=== PATIENT | female | born 1980 | race Caucasian/White ===

== ENCOUNTER 2020-03-21 11:15 | Emergency (ER) | payer MEDICAID, SELFPAY ==
--- NOTE | 2020-03-21 | XR_ITS ---
EXAMINATION: XR LUMBOSACRAL SPINE CLINICAL INFORMATION: Lower back pain. COMPARISON: None TECHNIQUE: Three views of the lumbosacral spine. FINDINGS: The vertebral bodies and posterior elements are normal. The disc spaces are preserved and the vertebral alignment is normal. The paraspinal soft tissues are normal. XR/XR lumbar spine 2-3V IMPRESSION: Unremarkable lumbar spine examination.
[2020-03-21 11:30] VITALS: BP 107/62; PULSE 82; RESP 20; TEMP 36.8; O2SAT 100; BMI 26.8
--- NOTE | 2020-03-21 11:50 | PC.NURSE ---
transported via [facility] to ed 18h bed, 2 assist onto stretcher, transported to xray dept
--- NOTE | 2020-03-21 12:40 | ED.BACK ---
HPI - Back Pain/Injury General Chief Complaint: Back Pain/Injury Stated Complaint: FELT POP LOW BACK W/PAIN Time Seen by Provider: 03/21/20 12:03 Source: patient and EMS Mode of arrival: EMS Limitations: no limitations History of Present Illness HPI Narrative: 39 y/o female presenting with acute onset of low back pain after she was down in the ground cleaning under her kitchen sink. She states while bending down felt her entire lower back tighten up and it caused debiliating pain. She was unable to move. She called 911. She denies weakness, numbness, incontinence. MD elicited complaint: back pain Pertinent past history: prior back pain Onset (ago): hour(s) (2) Timing: constant Severity: severe Similar Symptoms Previously: No Quality: aching and spasming Location: right lower back and left lower back Radiation: none Exacerbating factors: movement, deep breaths and coughing/sneezing Relieving factors: immobilization Context: turning/twisting and bending Associated symptoms: denies other symptoms Work related injury: No Related Data Previous Rx's Medication Instructions Recorded cyclobenzaprine 5 mg PO TID PRN #14 tab 03/21/20 ibuprofen 600 mg PO Q8H PRN #20 tab 03/21/20 lidocaine [Lidoderm] 1 patch TOPICAL DAILY #15 ea 03/21/20 oxycodone 5 mg PO Q6H PRN #8 tab 03/21/20 Allergies Allergy/AdvReac Type Severity Reaction Status Date / Time morphine Allergy Unknown Verified 01/18/16 00:00 No Known Allergies Allergy Unverified 12/09/19 16:23 [No Known Allergies*] Review of Systems Review of Systems: Constitutional: No Fever, No Chills Cardiovascular: No Chest Pain, No SOB Respiratory: No Cough, No Sputum Gastrointestinal: No Nausea, No Vomiting Genitourinary: No Dysuria, No Urinary Frequency, No Hematuria, No incontinece Musculoskeletal: + joint pain, + Myalgias Skin: No Skin Lesions, No rash Neuro: No Weakness, No Numbness, No Dizziness Heme/Lymph: No Bruising PMFSH Past Medical History Attestation statement: The following information was validated with the patient. Medical History (Updated 03/22/20 @ 18:21 by VINCENT Baltazar) No known health problems Social History Social History Advance Directives: No Advance Directives Information Provided: No Physical Exam Vital Signs: Vital Signs: Last Vital Signs Temp 97.9 F 03/21/20 14:37 Pulse 77 03/21/20 14:37 Resp 16 03/21/20 14:37 BP 123/71 03/21/20 14:37 Pulse Ox 97 03/21/20 14:37 Body Mass Index 26.8 Appearance: Alert. Oriented X3. No acute distress. HEENT: normal inspection CVS: Normal heart rate and rhythm. Pulses normal. Respiratory: No respiratory distress. Skin: Skin warm and dry. Normal skin color. Normal skin turgor. No rashes. Back: bilateral mid-low lumbar soft tissue tenderness bilaterally, no spinal tenderness. Extremities: atraumatic Neuro: Oriented X 3. No motor deficit. No sensory deficit. Slow to arise, steady but slow gait due to pain Course Course Course Narrative: 39 yo female presenting with acute onset low back pain - consistent with muscle pain and spasm. XR is negative. No focal weakness on exam. No red flag symptoms of low back pain. No hx IDVA. Given muscle relaxer and dose of Toradol, Oxycodone with significant improvement in pain. Stable for d/c with the above medications. Discharge Plan Discharge Clinical Impression: Strain of lumbar region Patient Disposition: Home, Self-Care Instructions: Low Back Strain (ED), Lower Back Exercises (ED) Additional Instructions: Your x-rays today are negative. It is likely that your pain is muscular in nature. Take the prescribed medications as needed for pain. Limit bending, lifting >5lbs and twisting motions. Follow up with your doctor tomorrow. Use ice several times per day for the next 48-72 hours and then use heat. If your pain worsens or if you develop weakness, numbness, loss of function or incontinence come back to the ER for further evaluation. Prescriptions: New lidocaine [Lidoderm] 5 % adhesive patch,medicated 1 patch topical DAILY Qty: 15 RF: 0 ibuprofen 600 mg tablet 600 mg PO Q8H PRN (Reason: pain) Qty: 20 RF: 0 cyclobenzaprine 5 mg tablet 5 mg PO TID PRN (Reason: muscle spasm) Qty: 14 RF: 0 oxycodone 5 mg tablet 5 mg PO Q6H PRN (Reason: pain) Qty: 8 RF: 0 Interventions: ED Discharge Assessment Last Done: 03/21/20 15:21 Discharge Date/Time: 03/21/20 15:22
[2020-03-21] MEDS: Ketorolac Tromethamine 30 MG/ML VIAL IM (12:41)
[2020-03-21] MEDS: Cyclobenzaprine HCl 5 MG TABLET PO (13:19)
[2020-03-21] MEDS: Lidocaine 4 % Patch ADH..PATCH 1 PATCH TRANSDERMA (13:19)
[2020-03-21] MEDS: oxyCODONE HCl Immed Release 5 MG TABLET PO (13:20)
--- NOTE | 2020-03-21 14:33 | PC.NURSE ---
PT NOW REPORTS PAIN 5/10, IMPROVEMENT IN MOVEMENT
[2020-03-21 14:37] VITALS: BP 123/71; PULSE 77; RESP 16; TEMP 36.6; O2SAT 97
== END 2020-03-21 15:22 | disposition home or self-care (01) ==
PROVIDERS: Emergency Provider Emergency Medicine Emergency Medical Services; PCP Internal Medicine
DX: S39.012A Strain of muscle, fascia and tendon of lower back, initial encounter (principal); W01.0XXA Fall on same level from slipping, tripping and stumbling without subsequent striking against object, initial encounter; Y93.9 Activity, unspecified; Y92.9 Unspecified place or not applicable; Y99.9 Unspecified external cause status; Z79.899 Other long term (current) drug therapy
CPT/HCPCS: 72100; 96372; 99284; J1885

== ENCOUNTER 2020-12-27 15:36 | Outpatient (REF) | payer MEDICAID, SELFPAY | END 2020-12-27 15:37 | disposition home or self-care (01) | LOC: HO.LAB 15:36 | PROVIDERS: PCP Internal Medicine; Visit Provider Internal Medicine | DX: Z20.822 Contact with and (suspected) exposure to COVID-19 (principal) | CPT/HCPCS: C9803; U0003; U0005 ==

== ENCOUNTER 2021-09-26 06:31 | Emergency (ER) | payer MEDICAID, SELFPAY ==
--- NOTE | ~2021-09-26 | US_ITS ---
EXAMINATION: US PELVIS CLINICAL INFORMATION: Lower abdominal pain with history of ovarian cyst. COMPARISON: CT scan of the abdomen and pelvis as well as pelvic ultrasound dated 11/09/2019. TECHNIQUE: Ultrasound of the pelvis is performed using both transabdominal and transvaginal transducers along with Doppler. Transvaginal imaging is performed due to inadequate visualization transabdominally. FINDINGS: Uterus: Retroverted/retroflexed measuring 7.4 x 4.1 x 5.8 cm. The endometrial stripe measures up to 0.7 cm at the level the fundus without focal abnormality. The cervix is closed without abnormality. No free fluid in the cul-de-sac. Right ovary: 3.8 x 3.0 x 3.2 cm with a volume of 19.1 mL. A heterogeneous cyst measures 2.2 x 1.5 cm. An anechoic cyst measures 1.9 x 1.7 cm. Doppler showed no abnormal vascular flow. Left ovary: 3.0 x 1.9 x 2.5 cm with a volume of 7.5 cm. An anechoic cyst measures 1.6 x 1.1 cm. Doppler showed no abnormal vascular flow. US/US pelvic and transvaginal IMPRESSION: Retroverted/retroflexed uterus without overt abnormality. Bilateral renal cysts demonstrate overall benign features and are likely physiologic, within normal limits for a patient of this age.
[2021-09-26 06:39] VITALS: BP 123/79; PULSE 80; RESP 18; TEMP 37.2; O2SAT 100; BMI 28.9
[2021-09-26 07:15] LABS: Hematocrit 39.2 % (37.0-47.0); Hemoglobin 13.3 g/dl (12.0-16.0); Mean Corpuscular HGB Conc 33.9 g/dl (31.0-35.0); Mean Corpuscular Hemoglobin 30.2 pg (27.0-33.0); Mean Corpuscular Volume 89.1 fL (80.0-98.0); Mean Platelet Volume 9.5 fL (9.4-12.3); Platelet Count 233 X10*3/uL (160-400); Red Cell Distribution Width 12.2 % (11.0-16.0); White Blood Count 7.2 X10*3/uL (4.8-10.8)
[2021-09-26 07:31] LABS: Alanine Aminotransferase 8 U/L (0-31); Albumin Level 3.9 g/dL (3.5-5.0); Alkaline Phosphatase 102 U/L (39-117); Anion Gap 9 (12-20); Aspartate Amino Transferase 13 U/L (5-31); Bilirubin Total 0.4 mg/dL (0.0-1.0); Blood Urea Nitrogen 8 mg/dL (9-16); Calcium 8.7 mg/dL (8.4-10.2); Carbon Dioxide 29 mmol/L (22-29); Chloride 105 mmol/L (96-108); Creatinine Clr Calc Pharmacy 99.3; Estimated Glomerular Filt Rate > 60; Glucose Random 112 mg/dL (60-115); Lipase 24 U/L (8-78); Potassium 4.3 mmol/L (3.3-5.1); Sodium 139 mmol/L (135-145); Total Protein 6.9 g/dL (6.5-8.0)
--- NOTE | 2021-09-26 07:42 | ED_ITS ---
HPI - Abdominal Pain General Chief Complaint: Abdominal Pain Stated Complaint: lower abd pain Time Seen by Provider: 09/26/21 07:42 Source: patient Mode of arrival: ambulatory Limitations: no limitations History of Present Illness HPI narrative: Patient with history of ovarian cyst been complaining of lower abdominal pain for last 3 days especially when she bending or walking no fever no chills no nausea no vomiting no diarrhea no urinary symptoms no vaginal discharge no back pain Related Data Previous Rx's Medication Instructions Recorded cyclobenzaprine 5 mg tablet 5 mg PO TID PRN muscle spasm #14 03/21/20 tabs ibuprofen 600 mg tablet 600 mg PO Q8H PRN pain #20 tabs 03/21/20 lidocaine 5 % topical patch 1 patch topical DAILY #15 ea 03/21/20 (Lidoderm) oxycodone 5 mg tablet 5 mg PO Q6H PRN pain #8 tabs 03/21/20 ibuprofen 600 mg tablet 600 mg PO Q6H PRN pain #20 tabs 09/26/21 Allergies Allergy/AdvReac Type Severity Reaction Status Date / Time morphine Allergy Unknown Verified 01/18/16 00:00 No Known Allergies Allergy Unverified 12/09/19 16:23 [No Known Allergies*] Review of Systems Review of Systems Yes all other systems are reviewed and are negative [facility] Past Medical History Medical History No known health problems Social History Social History Advance Directives: No Advance Directives Information Provided: Yes Patient : No Physical Exam ED Vital Signs: Vital Signs - 24 hr 09/26/21 06:39 09/26/21 07:54 Temperature 98.9 F 97.9 F Pulse Rate 80 79 Respiratory Rate 18 16 Blood Pressure 123/79 92/72 Pulse Oximetry 100 100 Oxygen Delivery Method Room Air Room Air BMI result Body Mass Index 28.9 Appearance: Alert. Oriented X3. No acute distress. ENT: Pharynx normal. Oral Mucosa moist Neck: Normal inspection. Neck supple. CVS: Normal heart rate and rhythm. Pulses normal. Respiratory: No respiratory distress. Equal air entry bilateral, no wheezing/rales/rhonchi Abdomen: Soft , deep tenderness suprapubic area no rebound tenderness or guarding Bowel sounds are present, no mass palpable, no CVA tenderness Skin: Skin warm and dry. Normal skin color. Normal skin turgor. Extremities: No lower extremity edema. No calf tenderness Neuro: Oriented X 3 MDM - Abdominal Pain Lab Data Attestation: I reviewed the patient's lab results. Result diagrams: 09/26/21 07:06 09/26/21 07:06 Labs: Lab Results 09/26/21 09/26/21 09/26/21 Range/Units 07:06 07:06 07:54 WBC 7.2 (4.8-10.8) X10*3/uL RBC 4.40 (4.20-5.50) X10*6/uL Hgb 13.3 (12.0-16.0) g/dl Hct 39.2 (37.0-47.0) % MCV 89.1 (80.0-98.0) fL MCH 30.2 (27.0-33.0) pg MCHC 33.9 (31.0-35.0) g/dl RDW 12.2 (11.0-16.0) % Plt Count 233 (160-400) X10*3/uL MPV 9.5 (9.4-12.3) fL Absolute Nucleated RBC 0.000 (0.0-0.012) X10*3/uL Nucleated RBC % (auto) 0.0 (0.0-0.2) /100WBC Sodium 139 (135-145) mmol/L Potassium 4.3 (3.3-5.1) mmol/L Chloride 105 (96-108) mmol/L Carbon Dioxide 29 (22-29) mmol/L Anion Gap 9 L (12-20) BUN 8 L (9-16) mg/dL Creatinine 0.65 (0.5-1.4) mg/dL Estim Creat Clear Calc 99.3 Estimated GFR > 60 Random Glucose 112 (60-115) mg/dL Calcium 8.7 (8.4-10.2) mg/dL Total Bilirubin 0.4 (0.0-1.0) mg/dL AST 13 (5-31) U/L ALT 8 (0-31) U/L Alkaline Phosphatase 102 (39-117) U/L Total Protein 6.9 (6.5-8.0) g/dL Albumin 3.9 (3.5-5.0) g/dL Lipase 24 (8-78) U/L Urine Color Urine Appearance Urine pH (5.0-8.0) Ur Specific [place] (1.005-1.025) Urine Protein (NEG-TRACE) MG/DL Urine Glucose (UA) (NEG) MG/DL Urine Ketones (NEG) MG/DL Urine Blood (NEG) Urine Nitrite (NEG) Ur Leukocyte Esterase (NEG) Urine Test NEGATIVE (NEGATIVE) 09/26/21 Range/Units 07:54 WBC (4.8-10.8) X10*3/uL RBC (4.20-5.50) X10*6/uL Hgb (12.0-16.0) g/dl Hct (37.0-47.0) % MCV (80.0-98.0) fL MCH (27.0-33.0) pg MCHC (31.0-35.0) g/dl RDW (11.0-16.0) % Plt Count (160-400) X10*3/uL MPV (9.4-12.3) fL Absolute Nucleated RBC (0.0-0.012) X10*3/uL Nucleated RBC % (auto) (0.0-0.2) /100WBC Sodium (135-145) mmol/L Potassium (3.3-5.1) mmol/L Chloride (96-108) mmol/L Carbon Dioxide (22-29) mmol/L Anion Gap (12-20) BUN (9-16) mg/dL Creatinine (0.5-1.4) mg/dL Estim Creat Clear Calc Estimated GFR Random Glucose (60-115) mg/dL Calcium (8.4-10.2) mg/dL Total Bilirubin (0.0-1.0) mg/dL AST (5-31) U/L ALT (0-31) U/L Alkaline Phosphatase (39-117) U/L Total Protein (6.5-8.0) g/dL Albumin (3.5-5.0) g/dL Lipase (8-78) U/L Urine Color YELLOW Urine Appearance HAZY Urine pH 6.0 (5.0-8.0) Ur Specific [place] 1.025 (1.005-1.025) Urine Protein NEG (NEG-TRACE) MG/DL Urine Glucose (UA) NEG (NEG) MG/DL Urine Ketones NEG (NEG) MG/DL Urine Blood NEG (NEG) Urine Nitrite NEG (NEG) Ur Leukocyte Esterase NEG (NEG) Urine Test (NEGATIVE) Discharge Plan Discharge Clinical Impression: Ovarian cyst Patient Disposition: Home, Self-Care Instructions: Ovarian Cyst (ED) Additional Instructions: You have small ovarian cyst and your pain is likely from ovarian cyst Ibuprofen for pain Follow with PCP if not better Prescriptions: New ibuprofen 600 mg tablet 600 mg PO Q6H PRN (Reason: pain) Qty: 20 0RF No Action lidocaine [Lidoderm] 5 % adhesive patch,medicated 1 patch topical DAILY Qty: 15 0RF Rx Instructions: leave on most painful area for up to 12 hrs ibuprofen 600 mg tablet 600 mg PO Q8H PRN (Reason: pain) Qty: 20 0RF cyclobenzaprine 5 mg tablet 5 mg PO TID PRN (Reason: muscle spasm) Qty: 14 0RF oxycodone 5 mg tablet 5 mg PO Q6H PRN (Reason: pain) Qty: 8 0RF Rx Instructions: for 3 days Interventions: ED Discharge Assessment Last Done: 09/26/21 10:42 Discharge Date/Time: 09/26/21 10:45
[2021-09-26 07:54] VITALS: BP 92/72; PULSE 79; RESP 16; TEMP 36.6; O2SAT 100
[2021-09-26 08:01] LABS: Appearance Urine HAZY; Color Urine YELLOW; Glucose Urine UA NEG (NEG); Leukocyte Esterase Urine NEG (NEG); Nitrite Urine NEG (NEG); Specific Gravity - Urine 1.025 (1.005-1.025); Urine Blood NEG (NEG); Urine Ketones NEG (NEG); Urine Protein NEG (NEG-TRACE)
[2021-09-26 08:02] LABS: UPreg QC Valid YES
[2021-09-26 08:03] LABS: Urine Pregnancy NEGATIVE (NEGATIVE)
[2021-09-26] MEDS: Ibuprofen 600 MG TABLET PO (10:21)
== END 2021-09-26 10:45 | disposition home or self-care (01) ==
PROVIDERS: Emergency Provider Internal Medicine; PCP Internal Medicine
DX: N83.202 Unspecified ovarian cyst, left side (principal); N83.201 Unspecified ovarian cyst, right side; R10.30 Lower abdominal pain, unspecified
CPT/HCPCS: 36415; 76830; 76856; 80053; 81003; 81025; 83690; 85027; 99284

== ENCOUNTER 2022-01-14 10:39 | Outpatient (REF) | payer MEDICAID, SELFPAY ==
[2022-01-14 10:57] LABS: MANUAL DIFF FLAG NO
[2022-01-14 11:43] LABS: Basophils Percent Auto 0.3 % (0-2); Eosinophils Absolute Auto 0.1 X10*3/uL (0.0-0.4); Eosinophils Percent Auto 1.4 % (0-4); Hematocrit 40.3 % (37.0-47.0); Hemoglobin 13.9 g/dl (12.0-16.0); Imm Gran Abs Auto 0.03 X10*3/uL (0.00-0.03); Imm Gran Pct Auto 0.4 % (0.0-0.4); Lymphocytes Absolute Auto 2.1 X10*3/uL (1.2-4.9); Lymphocytes Percent Auto 30.5 % (20-40); Mean Corpuscular HGB Conc 34.5 g/dl (31.0-35.0); Mean Corpuscular Hemoglobin 30.6 pg (27.0-33.0); Mean Corpuscular Volume 88.8 fL (80.0-98.0); Mean Platelet Volume 9.9 fL (9.4-12.3); Monocytes Absolute Auto 0.6 X10*3/uL (0.1-1.2); Monocytes Percent Auto 8.2 % (2-11); Neutrophils Absolute Auto 4.1 x10*3/uL (2.0-8.3); Neutrophils Percent Auto 59.2 % (45-73); Platelet Count 242 X10*3/uL (160-400); Red Blood Count 4.54 X10*6/uL (4.20-5.50); Red Cell Distribution Width 11.9 % (11.0-16.0)
[2022-01-14 12:35] LABS: Thyroid Stimulating Hormone 0.53 uIU/mL (0.32-4.0)
[2022-01-14 12:37] LABS: Alanine Aminotransferase 8 U/L (0-31); Albumin Level 4.1 g/dL (3.5-5.0); Alkaline Phosphatase 88 U/L (39-117); Anion Gap 15 (12-20); Aspartate Amino Transferase 19 U/L (5-31); Bilirubin Total 0.3 mg/dL (0.0-1.0); Blood Urea Nitrogen 9 mg/dL (9-16); Calcium 9.1 mg/dL (8.4-10.2); Carbon Dioxide 25 mmol/L (22-29); Chloride 103 mmol/L (96-108); Cholesterol 178 mg/dL; Estimated Glomerular Filt Rate > 60; Glucose Random 93 mg/dL (60-115); HDL Cholesterol 46 mg/dL; LDL Cholesterol Calculated 117 mg/dl; Potassium 4.2 mmol/L (3.3-5.1); Sodium 139 mmol/L (135-145); Total Protein 7.1 g/dL (6.5-8.0); Triglycerides 78 mg/dL
== END 2022-01-14 10:40 | disposition home or self-care (01) ==
LOC: HO.LAB 10:39
PROVIDERS: PCP Internal Medicine; Visit Provider Internal Medicine
DX: Z00.00 Encounter for general adult medical examination without abnormal findings (principal); E04.9 Nontoxic goiter, unspecified; R63.5 Abnormal weight gain
CPT/HCPCS: 36415; 80053; 80061; 84443; 85025

== ENCOUNTER → 2022-03-11 08:41 | Outpatient (BNVA) | payer MEDICAID, SELFPAY | PROVIDERS: PCP Internal Medicine; Visit Provider Obstetrics & Gynecology | DX: R87.612 Low grade squamous intraepithelial lesion on cytologic smear of cervix (LGSIL) (principal) | CPT/HCPCS: 99202 ==

== ENCOUNTER 2022-04-09 11:09 | Outpatient (REF) | payer MEDICAID, SELFPAY | END 2022-04-09 11:10 | disposition home or self-care (01) | LOC: HO.LNP 11:09 | PROVIDERS: PCP Internal Medicine; Visit Provider Obstetrics & Gynecology | DX: R87.612 Low grade squamous intraepithelial lesion on cytologic smear of cervix (LGSIL) (principal) | CPT/HCPCS: 57454; 88305; 88342; 88360 ==

== ENCOUNTER → 2022-04-30 12:11 | Outpatient (BNVA) | payer MEDICAID, SELFPAY | PROVIDERS: PCP Internal Medicine; Visit Provider Obstetrics & Gynecology | DX: R87.612 Low grade squamous intraepithelial lesion on cytologic smear of cervix (LGSIL) (principal); Z98.890 Other specified postprocedural states | CPT/HCPCS: 99212 ==

== ENCOUNTER 2022-05-06 13:55 | Outpatient (REF) | payer MEDICAID, SELFPAY | END 2022-05-06 13:56 | disposition home or self-care (01) | LOC: HO.LNP 13:55 | PROVIDERS: PCP Internal Medicine; Visit Provider Obstetrics & Gynecology | DX: R87.612 Low grade squamous intraepithelial lesion on cytologic smear of cervix (LGSIL) (principal) | CPT/HCPCS: 57454; 88305 ==

== ENCOUNTER → 2022-05-27 08:22 | Outpatient (BNVA) | payer MEDICAID, SELFPAY | PROVIDERS: PCP Internal Medicine; Visit Provider Obstetrics & Gynecology | DX: R87.612 Low grade squamous intraepithelial lesion on cytologic smear of cervix (LGSIL) (principal) | CPT/HCPCS: 99212 ==

== ENCOUNTER 2022-11-10 07:08 | Emergency (ER) | payer MEDICAID, SELFPAY ==
--- NOTE | ~2022-11-10 | XR_ITS ---
Examination: Lumbar spine, sacrum and coccyx. CLINICAL INDICATIONS: Pain. TECHNIQUE: Lumbar spine 3 views. Sacrum and coccyx 3 views. FINDINGS: LUMBAR SPINE: There is normal lumbar lordosis. The vertebral heights, alignment and disc heights are normal. There is no visible acute fracture, dislocation or subluxation seen. The SI joints are symmetrical and normal. Cecum and coccyx: There is normal symmetry of bilateral SI joints. No visible acute fracture, dislocation or subluxation seen. The soft tissues are normal. XR/XR lumbar spine 2-3V IMPRESSION: 1. Unremarkable lumbar spine exam. 2. Unremarkable sacrum and coccyx exam. No visible acute fracture or dislocation seen. The SI joints are symmetrical and normal
--- NOTE | ~2022-11-10 | XR_ITS ---
Examination: Lumbar spine, sacrum and coccyx. CLINICAL INDICATIONS: Pain. TECHNIQUE: Lumbar spine 3 views. Sacrum and coccyx 3 views. FINDINGS: LUMBAR SPINE: There is normal lumbar lordosis. The vertebral heights, alignment and disc heights are normal. There is no visible acute fracture, dislocation or subluxation seen. The SI joints are symmetrical and normal. Cecum and coccyx: There is normal symmetry of bilateral SI joints. No visible acute fracture, dislocation or subluxation seen. The soft tissues are normal. XR/XR sacrum coccyx min 2V IMPRESSION: 1. Unremarkable lumbar spine exam. 2. Unremarkable sacrum and coccyx exam. No visible acute fracture or dislocation seen. The SI joints are symmetrical and normal
[2022-11-10 07:18] VITALS: BP 111/75; PULSE 78; RESP 16; TEMP 37.3; O2SAT 99
[2022-11-10 07:27] VITALS: BP 111/75; PULSE 76; RESP 18; TEMP 37.3; O2SAT 98; BMI 31.9
--- NOTE | 2022-11-10 07:39 | ED_ITS ---
HPI - Back Pain/Injury General Chief Complaint: Back Pain/Injury Stated Complaint: back pain Time Seen by Provider: 11/10/22 07:22 Source: patient and RN notes reviewed Mode of arrival: ambulatory Limitations: no limitations History of Present Illness HPI Narrative: This is a 41-year-old female, with no known past medical history, presenting to the emergency department for evaluation of back pain x3 days. Patient reports that on Friday she was putting away a bag when suddenly her ?back gave out? and she dropped to the floor because of the pain. Patient reports that throughout the day her back pain was significant. She states that over the last couple today she has been taking ibuprofen and Tylenol as well as Flexeril for her pain and symptoms which has provided her with some relief. She is not taking any medications today to treat her back pain. She states that this morning she was putting clothes away when she bent over and felt a crack in her back with worsening back pain. She describes her pain as a pressure which worsens with movement especially sitting down. She denies any numbness or tingling. No weakness. No saddle anesthesia. No urinary bowel incontinence. No urinary retention or bowel retention. Denies any abdominal pain, urinary symptoms, chest pain, or shortness of breath. In 2019 she had similar back pain which resolved on its own. No other complaints or concerns this time. MD elicited complaint: back pain and back injury Pertinent past history: prior back pain Onset (ago): day(s) Timing: constant and progressively worsening Severity: moderate Similar Symptoms Previously: No Quality: aching Location: lumbar spine, sacrum, right lower back and left lower back Radiation: none Exacerbating factors: none Relieving factors: none Context: bending Associated symptoms: denies other symptoms Work related injury: No Related Data Previous Rx's Medication Instructions Recorded acetaminophen 325 mg capsule 650 mg PO Q6H PRN pain #30 caps 11/10/22 (Tylenol) methocarbamol 1,000 mg tablet 1,000 mg PO TID PRN muscle spasm 11/10/22 #10 tabs prednisone 20 mg tablet 40 mg PO DAILY 5 days #10 tabs 11/10/22 Allergies Allergy/AdvReac Type Severity Reaction Status Date / Time morphine Allergy Unknown Unknown Verified 05/27/22 08:35 No Known Allergies Allergy Verified 05/27/22 08:35 [No Known Allergies*] Review of Systems Review of Systems: Yes all other systems are reviewed and are negative Constitutional: Constitutional: Reports as per HPI [facility] [place] Past Medical History Medical History (Updated 11/10/22 @ 08:21 by VINCENT Miner) LGSIL on Pap smear of cervix No known health problems Surgical History H/O tubal ligation History of right oophorectomy Hx of appendectomy Social History Social History Household Members: Spouse Patient Tobacco Use Status: Never used Tobacco Smoked in Last 30 Days: No Use of substances other than those prescribed or required for medical reasons: No Advance Directives: No Advance Directives Information Provided: No Physical Exam Vital Signs: Vital Signs: Last Vital Signs Temp 99.2 F 11/10/22 07:27 Pulse 76 11/10/22 07:27 Resp 18 11/10/22 07:27 BP 111/75 11/10/22 07:27 Pulse Ox 98 11/10/22 07:27 O2 Del Method Room Air 11/10/22 07:27 BMI result Body Mass Index 31.9 Const: General: cooperative, comfortable and no acute distress Orientation/consciousness: patient oriented x3 Limitations: no limitations HEENT: Head: Yes normal to inspection, Yes normocephalic and Yes atraumatic Ears: hearing grossly normal bilaterally General nose exam: Normal external nose present Face and sinus: Yes normal facial exam Mouth: Normal oral and palatal mucosa present, oropharynx normal and moist mucous membranes Throat: Yes posterior oropharynx normal Eyes: General: appearance normal, both eyes and all related structures Eyelids: Yes eyelids normal Conjunctivae: conjunctivae normal Sclerae: sclerae normal Pupils: Equal, round and reactive pupils present EOM: EOMs intact bilaterally Neck: Neck: Yes normal visual inspection, Yes full ROM and Yes no lymphadenopathy Lymphatic: no lymphadenopathy noted Chest: Chest palpation & inspection: normal inspection of the chest Resp: Effort & Inspection: normal respiratory effort and able to speak in complete sentences Auscultation: clear to auscultation bilaterally, no crackles, no rales, no rhonchi and no wheezes Cardio: Rate: regular rate Rhythm: regular rhythm Heart sounds: S1 normal heart sound present and S2 normal heart sound present GI: Other: Abdomen is soft, nontender, nondistended Inspection: Yes normal to inspection Back/Spine/Pelvis: Other: No C-spine, T-spine, L-spine midline spine tenderness. Tenderness to palpation along the lumbar and coccyx region, with ttp to bilateral lumbar musculature. DTRs 2+ Skin: General skin exam: no rashes or lesions noted Trauma: no lacerations or abrasions Wounds: no wounds Neuro: General: patient oriented x3 and moves all extremities Cranial nerves: Yes Equal, round and reactive pupils present Extrem: General: Yes normal to inspection Right upper extremity: normal to inspection Left upper extremity: normal to inspection Right lower extremi ty: normal to inspection Left lower extremity: normal to inspection Course Reevaluation(s) Reevaluation #1: Lumbar and sacral/coccyx x-ray unremarkable, no acute fracture or dislocation seen, SI joints are symmetrical and normal. Discussed results with patient, will discharge patient on prednisone, muscle relaxants, and Tylenol. Advised not to mix prednisone and ibuprofen/NSAIDs. Discussed return precautions, and advised to follow-up with primary care physician as she may need to be referred to physical therapy or have additional diagnostic tests. Patient understands and agrees with plan. Patient stable for discharge. Time: 08:16 Medications Administered Discontinued Medications Generic Name Dose Route Start Last Admin Trade Name Freq PRN Reason Stop Dose Admin Ketorolac Tromethamine 30 mg 11/10/22 07:38 11/10/22 08:08 Ketorolac Tromethamine 30 Mg/Ml Vial IM 11/10/22 07:39 30 mg ONCE ONE Administration Medical Decision Making Medical Decision Making MDM Narrative: 41-year-old female presenting to the emergency department for evaluation of back pain since Friday. On arrival, vital signs within normal limits. On exam, patient has tenderness to palpation along the lumbar an sacrum as well as lumbar musculature. No back pain red flags on history or physical. Presentation not consistent with malignancy (lack of history of malignancy, lack of B symptoms), fracture (no trauma, no bony tenderness to palpation), cauda equina syndrome (no bowel or urinary incontinence/retention, no saddle anesthesia, no distal weakness), pyelonephritis (afebrile, no CVAT, no urinary symptoms).Given mechanism of injury, fracture, disc herniation is considered, and will obtain x- rays for further evaluation. Plan: Xrays lumbar spine and coccyx/sacrum ordered. Patient medicated department with Toradol 30 mg IM. Differential Diagnosis Differential Diagnoses: The differential diagnosis associated with the presentation includes See above Lab Data MDM Lab Attestation statement: I reviewed the patient's lab results. Radiology Impression Discussion of test interpretation with radiology: I have reviewed the radiologist's reading. Radiologist Impression: Examination: Lumbar spine, sacrum and coccyx. CLINICAL INDICATIONS: Pain. TECHNIQUE: Lumbar spine 3 views. Sacrum and coccyx 3 views. FINDINGS: LUMBAR SPINE: There is normal lumbar lordosis. The vertebral heights, alignment and disc heights are normal. There is no visible acute fracture, dislocation or subluxation seen. The SI joints are symmetrical and normal. Cecum and coccyx: There is normal symmetry of bilateral SI joints. No visible acute fracture, dislocation or subluxation seen. The soft tissues are normal. XR/XR lumbar spine 2-3V IMPRESSION: 1.? Unremarkable lumbar spine exam. 2.? Unremarkable sacrum and coccyx exam. No visible acute fracture or dislocation seen. The SI joints are symmetrical and normal ? Dictated By: Gennaro Carr MD External Record Review External record reviewed: Inpatient record, Office record, Outpatient record, Prior outpatient labs, Prior outpatient radiology, Primary care record and Outside ED record Discharge Plan Discharge Clinical Impression: Strain of lumbar region Patient Disposition: Home, Self-Care Instructions: Muscle Strain (ED), Acute Low Back Pain (ED) Additional Instructions: Take prescribed medication as directed. Your x-rays today did not show any fractures or abnormalities. You may take Tylenol as needed for pain. Do not take prednisone and NSAID medications such as naproxen and ibuprofen. Take muscle relaxant as needed, please be aware that this can cause drowsiness, do not drink alcohol or drive while taking this medication. Follow-up with your primary care physician regarding this visit. If any new or worsening symptoms occur including but not limited to numbness and tingling into your groin, weakness, urinary or bowel retention or incontinence, please return for re-evaluation. Prescriptions: New prednisone 20 mg tablet 40 mg PO DAILY 5 Days Qty: 10 0RF methocarbamol 1,000 mg tablet 1,000 mg PO TID PRN (Reason: muscle spasm) Qty: 10 0RF acetaminophen [Tylenol] 325 mg capsule 650 mg PO Q6H PRN (Reason: pain) Qty: 30 0RF
[2022-11-10 08:00] VITALS: RESP 16
[2022-11-10] MEDS: Ketorolac Tromethamine 30 MG/ML VIAL IM (08:08)
== END 2022-11-10 08:29 | disposition home or self-care (01) ==
PROVIDERS: Emergency Provider Emergency Medicine; PCP Internal Medicine
DX: S39.012A Strain of muscle, fascia and tendon of lower back, initial encounter (principal); M53.3 Sacrococcygeal disorders, not elsewhere classified; W01.0XXA Fall on same level from slipping, tripping and stumbling without subsequent striking against object, initial encounter; Y93.9 Activity, unspecified; Y92.9 Unspecified place or not applicable; Y99.9 Unspecified external cause status; Z79.899 Other long term (current) drug therapy
CPT/HCPCS: 72100; 72220; 96372; 99284; J1885

== ENCOUNTER 2023-07-16 07:55 | Outpatient (REF) | payer MEDICAID, SELFPAY ==
[2023-07-22 06:49] LABS: HPV mRNA E6/E7 rflx Not Detected (Not Detected)
== END 2023-07-16 07:56 | disposition home or self-care (01) ==
LOC: HO.LNP 07:55
PROVIDERS: PCP Internal Medicine; Visit Provider Obstetrics & Gynecology
DX: Z01.419 Encounter for gynecological examination (general) (routine) without abnormal findings (principal); Z11.51 Encounter for screening for human papillomavirus (HPV); R87.612 Low grade squamous intraepithelial lesion on cytologic smear of cervix (LGSIL)
CPT/HCPCS: 87624; 88142; 99396

== ENCOUNTER 2023-07-16 07:55 | Outpatient (AMB) | payer OTHER, SELFPAY ==
--- NOTE | 2023-07-16 08:01 | A.OFFVIS_ITS ---
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 No complaints. Last Pap/HPV was in 01/12 LGSIL, colpo/biopsy/ECC were negative No previous screening Mammogram [facility] Medical History LGSIL on Pap smear of cervix No known health problems Surgical History Hx of appendectomy History of right oophorectomy H/O tubal ligation Social History Household Members: Spouse Alcohol intake: never Patient Tobacco Use Status: Never used Tobacco Female Reproductive History Menstrual Age of Menarche: 10 Duration of menses: 6-7 days Date of last menstrual period: 07/05/23 control method: permanent sterilization Permanent Sterilization: BTL Total pregnancies: 3 Full term: 3 Number of Living Children: 3 Date of last pap smear: 01/14/22 (lgsil) History of abnormal pap smear: Yes (04/15 colpo 05/16 colpo) Review of Systems Const All systems reviewed & are unremarkable except as noted in HPI and below Card Reports as per HPI Resp Reports as per HPI GI Reports as per HPI and Reports no additional complaints Reports as per HPI Physical Exam Vital Signs: Last Vital Signs BP 108/74 07/16/23 08:02 BMI result Body Mass Index 31.4 Const General: cooperative, healthy appearing and comfortable Chest Chest palpation & inspection: normal inspection of the chest and normal palpation of entire chest wall Breast/axilla inspection: normal inspection of the breasts and normal inspection of the axillae Breast/axilla palpation: normal palpation of the breasts, normal palpation of the axillae and no axillary lymphadenopathy Resp Effort & Inspection: normal respiratory effort Auscultation: clear to auscultation bilaterally Percussion: percussion normal Cardio Palpation: normal PMI Rate: regular rate Rhythm: regular rhythm Heart sounds: no murmurs and no rubs Peripheral pulses: Peripheral pulses 2+ throughout GI Inspection: Yes normal to inspection Palpation (GI): Soft to palpation, nontender, no guarding, not rigid and No hepatosplenomegaly present Percussion: Yes normal to percussion Auscultation: normal bowel sounds Rectal Exam - Female: deferred General: Yes bladder normal to palpation External Female Exam: No lesion Speculum Exam - Vagina: normal appearance of the vagina, normal palpation, normal vaginal discharge and not erythematous Speculum Exam - Cervix: normal appearance of the cervix and normal palpation Bimanual exam- vagina & uterus: normal bimanual exam, normal palpation, uterine size normal, bladder normal to palpation, consistency normal and normal palpati on Bimanual Exam- Adnexa, other: normal adnexae, no masses and no tenderness Assessment & Plan Assessment & Plan (1) Well woman exam: Comment: 01/12 [facility] Code(s): Z01.419 - Encounter for gynecological examination (general) (routine) without abnormal findings Category: Medical Plan: Cotesting done. Mammogram scheduled next week at [facility]. Counseled the patient about the recommended dietary allowance of 1000 mg of Calcium & 600 IU of vitamin D. The patient was instructed to perform monthly self-breast exams and to schedule an annual exam in a year; All questions answered and the patient verbalized understanding. Instructed the patient to schedule annual exam in a year Orders: Orders MM tomosynthesis screening BI Today Z12.31 - Encounter for screening mammogram for malignant neoplasm of breast Coding Level of Care Code Est Pt Prev Care 40-64y(98665) Diagnoses Well woman exam Z01.419
[2023-07-16 08:02] VITALS: BP 108/74; BMI 31.4
== END 2023-07-16 08:44 | disposition home or self-care (01) ==
PROVIDERS: PCP Internal Medicine; Referring Provider Internal Medicine; Visit Provider Obstetrics & Gynecology
DX: Z01.419 Encounter for gynecological examination (general) (routine) without abnormal findings (principal)
CPT/HCPCS: 99396

== ENCOUNTER 2023-08-05 09:00 | Outpatient (REF) | payer OTHER, SELFPAY ==
--- NOTE | ~2023-08-05 | MM_ITS ---
EXAMINATION: MM SCREENING DIGITAL BREAST TOMOSYNTHESIS, BILATERAL CLINICAL INFORMATION: Screening. Asymptomatic. COMPARISON: Mammography: This study is compared with prior exams dating back to 2018. TECHNIQUE: Digital breast tomosynthesis is performed in both the craniocaudal and mediolateral oblique views along with computer-aided detection (CAD). Synthesized 2D images are generated from the tomosynthesis. FINDINGS: There are scattered areas of fibroglandular density (ACR BI-RADS breast composition Category b). There are no significant masses, suspicious calcifications, or other abnormalities. There are unchanged, scattered, benign, layering calcifications in each breast. These represent benign milk of calcium. MM/MM tomosynthesis screening BI IMPRESSION: No mammographic evidence of malignancy. ASSESSMENT: BI-RADS BI-RADS 2 - Benign Findings RECOMMENDATION: Routine annual mammography screening. 1 year F/U This examination should not preclude the clinical evaluation of a suspicious palpable abnormality. This patient's information was entered into a reminder system with a target due date for their next mammogram.
== END 2023-08-05 09:01 | disposition home or self-care (01) ==
LOC: HO.MAMMO 09:00
PROVIDERS: PCP Internal Medicine; Visit Provider Obstetrics & Gynecology
DX: Z12.31 Encounter for screening mammogram for malignant neoplasm of breast (principal)
CPT/HCPCS: 77063; 77067

== ENCOUNTER → 2023-08-05 09:00 | Outpatient (BNV) | payer OTHER, SELFPAY | PROVIDERS: PCP Internal Medicine; Visit Provider Radiology Diagnostic Radiology | DX: Z12.31 Encounter for screening mammogram for malignant neoplasm of breast (principal) | CPT/HCPCS: 77063; 77067 ==

== ENCOUNTER 2023-08-12 15:12 | Outpatient (REF) | payer MEDICAID, SELFPAY | END 2023-08-12 15:13 | disposition home or self-care (01) | LOC: HO.LNP 15:12 | PROVIDERS: PCP Internal Medicine; Visit Provider Obstetrics & Gynecology | DX: R87.612 Low grade squamous intraepithelial lesion on cytologic smear of cervix (LGSIL) (principal); Z32.02 Encounter for pregnancy test, result negative | CPT/HCPCS: 57454; 81025; 88305 ==

== ENCOUNTER 2023-08-12 15:12 | Outpatient (AMB) | payer OTHER, SELFPAY ==
--- NOTE | 2023-08-12 15:20 | MHC.OFFVIS ---
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 Information Interpreted: non-clinical & clinical Administration Professional: Administration Professional Present (Margaret HAIR) Accompanied by: Spouse Allergies morphine Allergy (Unknown, Verified 08/12/23 15:33) Unknown No Known Allergies [No Known Allergies*] Allergy (Verified 08/12/23 15:33) Is last menstrual period known: Yes Last menstrual period: 08/06/23 HPI Comments Details: Presenting for colposcopy for Pap smear showing LSIL HPV negative PFSH Medical History LGSIL on Pap smear of cervix No known health problems Surgical History Hx of appendectomy History of right oophorectomy H/O tubal ligation Social History Household Members: Spouse Alcohol intake: never Patient Tobacco Use Status: Never used Tobacco Female Reproductive History Menstrual Age of Menarche: 10 Date of last menstrual period: 08/06/23 Office Procedures Colposcopy Colposcopy: Pre-Procedure Counseling: Before beginning the procedure, I conducted comprehensive counseling with the patient. We thoroughly discussed the procedure itself, including its details, alternatives, and all associated risks. This included but not limited to the following complications such as bleeding, infection, and injury to the vagina, bladder, and vessels, as well as the potential need for transfusion with all its associated risks. Subsequently, the patient sign the consent. Pap smear result: LSIL. Urine test in office = Negative Procedure: During the procedure, the following steps were performed: A speculum was inserted, and acetic acid was applied. Colposcopy was conducted, allowing visualization of the transformation zone. Acetowhite lesions were identified at the 4+6+7 o'clock position. Cervical biopsies were obtained from the 4+6+7 o'clock position, followed by an endocervical curettage (ECC). Vaginoscopy of the upper vagina revealed no evidence of aceto-white lesions. Hemostasis was achieved using Monsel solution, and the patient tolerated the procedure well. Post-Procedure Instructions: The patient was advised to promptly contact the office or the after hours answering service or go to the emergency room if experiencing a temperature exceeding 100.4?F, abdominal pain, nausea/vomiting, or bleeding. Additionally, the patient was instructed to abstain from vaginal intercourse and bathtub use. The patient confirmed understanding of these instructions. Discharge Instructions: The patient was instructed to schedule a follow-up appointment in 2 weeks for further evaluation and management. Please note that this note was generated using a voice recognition program, and errors may have occurred during formula weigher. [id number]-[id number] of cervix including upper vagina with biopsy and ECC Procedure code (CPT) selection complete Results AMB Test Urine AMB Test Urine Negative Last Edit by Margaret Farley CMA on 08/12/23 15:32 Assessment & Plan Assessment & Plan (1) LGSIL on Pap smear of cervix: Comment: 01/12 LGSIL, colpo biopsy ECC negative Code(s): R87.612 - Low grade squamous intraepithelial lesion on cytologic smear of cervix (LGSIL) Category: Medical Plan: Colposcopy done, see procedure note Orders: Orders AMB Colposcopy Today R87.612 - Low grade squamous intraepithelial lesion on cytologic smear of cervix (LGSIL) AMB HCG Urine Test Today Z32.02 - Encounter for test, result negative Coding Level of Care Code Procedure Only Diagnoses LGSIL on Pap smear of cervix R87.612 CPT Codes Colposcopy - CPT: 07615-[id number] of cervix including upper vagina with biopsy and ECC ([id number])
[2023-08-12 15:32] VITALS: BP 102/62; BMI 31.4
== END 2023-08-12 16:10 | disposition home or self-care (01) ==
PROVIDERS: PCP Internal Medicine; Referring Provider Internal Medicine; Visit Provider Obstetrics & Gynecology
DX: R87.612 Low grade squamous intraepithelial lesion on cytologic smear of cervix (LGSIL) (principal); Z32.02 Encounter for pregnancy test, result negative
CPT/HCPCS: 57454

== ENCOUNTER 2023-08-26 08:56 | Outpatient (AMB) | payer OTHER, SELFPAY ==
--- NOTE | 2023-08-26 09:24 | A.OFFVIS_ITS ---
Vital Signs 08/26/23 09:26 Height 5 ft Weight 160 lb 14.999 oz BMI 31.4 BP 118/62 Intake Visit Reasons: colpo results Safety Admin Assistant Required: No Information Interpreted: non-clinical & clinical Accompanied by: Self / Same As Patient Allergies morphine Allergy (Unknown, Verified 08/26/23 09:26) Unknown No Known Allergies [No Known Allergies*] Allergy (Verified 08/26/23 09:26) Is last menstrual period known: Yes Last menstrual period: 08/25/23 HPI Comments Details: Presenting post colpo for follow-up. The patient is doing well with no complaints. The pathology showed the following: A. Endocervix, curettage: Endocervical glandular and squamous mucosa; negative for dysplasia. B. Cervix, 4:00, biopsy: Squamous and endocervical glandular mucosa; negative for dysplasia. C. Cervix, 6:00, biopsy: Squamous mucosa with focal hyperkeratosis; negative for dysplasia; no endocervical glandular component present. D. Cervix, 7:00, biopsy: Squamous mucosa with focal hyperkeratosis and paraker atosis and scant endocervical glandular epithelium; negative for dysplasia [facility] Medical History LGSIL on Pap smear of cervix No known health problems Surgical History Hx of appendectomy History of right oophorectomy H/O tubal ligation Social History Household Members: Spouse Alcohol intake: never Patient Tobacco Use Status: Never used Tobacco Female Reproductive History Menstrual Age of Menarche: 10 Date of last menstrual period: 08/25/23 Review of Systems Const All systems reviewed & are unremarkable except as noted in HPI and below Reports as per HPI and Reports no additional complaints GI Reports no additional complaints Reports no additional complaints Physical Exam Vital Signs: Last Vital Signs BP 118/62 08/26/23 09:26 BMI result Body Mass Index 31.4 Assessment & Plan Assessment & Plan (1) LGSIL on Pap smear of cervix: Comment: 01/12 LGSIL, colpo biopsy ECC negative Code(s): R87.612 - Low grade squamous intraepithelial lesion on cytologic smear of cervix (LGSIL) Category: Medical Plan: Discussed with the patient the pathology results of the colposcopy biopsies & endocervical curettage ( negative). Discussed with the patient the sensitivity specificity, positive and negative predictive value in detecting cervical cancer in addition discussed the regression, persistence and progression rates. Recommended co-testing in 12 months, if cytology and or HPV are abnormal will proceed was colposcopy biopsy and endocervical curettage. Instructions given to the patient to schedule a co test appointment in 1 year. All questions answered the patient verbalized understanding. Coding Level of Care Code Est Pt Level 3 (09568) Diagnoses LGSIL on Pap smear of cervix R87.612
[2023-08-26 09:26] VITALS: BP 118/62; BMI 31.4
== END 2023-08-26 09:31 | disposition home or self-care (01) ==
LOC: HO.HWS 08:56
PROVIDERS: PCP Internal Medicine; Referring Provider Internal Medicine; Visit Provider Obstetrics & Gynecology
DX: R87.612 Low grade squamous intraepithelial lesion on cytologic smear of cervix (LGSIL) (principal)
CPT/HCPCS: 99213

== ENCOUNTER → 2023-08-26 08:56 | Outpatient (BNVA) | payer MEDICAID, SELFPAY | PROVIDERS: PCP Internal Medicine; Visit Provider Obstetrics & Gynecology | DX: R87.612 Low grade squamous intraepithelial lesion on cytologic smear of cervix (LGSIL) (principal) | CPT/HCPCS: 99212 ==

== ENCOUNTER 2023-10-31 07:57 | Outpatient (REF) | payer OTHER, SELFPAY ==
[2023-10-31 08:09] LABS: MANUAL DIFF FLAG NO
[2023-10-31 08:41] LABS: Basophils Percent Auto 0.3 % (0-2); Eosinophils Absolute Auto 0.2 X10*3/uL (0.0-0.4); Eosinophils Percent Auto 2.5 % (0-4); Hematocrit 39.3 % (37.0-47.0); Hemoglobin 13.8 g/dl (12.0-16.0); Imm Gran Abs Auto 0.01 X10*3/uL (0.00-0.03); Imm Gran Pct Auto 0.2 % (0.0-0.4); Lymphocytes Absolute Auto 2.1 X10*3/uL (1.2-4.9); Lymphocytes Percent Auto 35.1 % (20-40); Mean Corpuscular HGB Conc 35.1 g/dl (31.0-35.0); Mean Corpuscular Hemoglobin 30.5 pg (27.0-33.0); Mean Corpuscular Volume 86.8 fL (80.0-98.0); Mean Platelet Volume 9.9 fL (9.4-12.3); Monocytes Absolute Auto 0.5 X10*3/uL (0.1-1.2); Monocytes Percent Auto 7.9 % (2-11); Neutrophils Absolute Auto 3.3 x10*3/uL (2.0-8.3); Platelet Count 228 X10*3/uL (160-400); Red Blood Count 4.53 X10*6/uL (4.20-5.50); Red Cell Distribution Width 12.2 % (11.0-16.0); White Blood Count 6.1 X10*3/uL (4.8-10.8)
[2023-10-31 09:21] LABS: Alanine Aminotransferase 10 U/L (0-31); Albumin Level 3.9 g/dL (3.5-5.0); Alkaline Phosphatase 82 U/L (39-117); Anion Gap 10 (12-20); Aspartate Amino Transferase 17 U/L (5-31); Bilirubin Total 0.3 mg/dL (0.0-1.0); Blood Urea Nitrogen 9 mg/dL (9-16); Calcium 9.2 mg/dL (8.4-10.2); Carbon Dioxide 26 mmol/L (22-29); Chloride 108 mmol/L (96-108); Estimated Glomerular Filt Rate > 60; Glucose Random 109 mg/dL (60-115); Sodium 140 mmol/L (135-145); Total Protein 7.1 g/dL (6.5-8.0)
[2023-11-01 15:33] LABS: Hepatitis B Viral DNA Qn - cp NOT DETECTED Log IU/mL (NOT DETECTED); Hepatitis B Viral DNA Qn-IU/mL NOT DETECTED (NOT DETECTED)
== END 2023-10-31 07:58 | disposition home or self-care (01) ==
LOC: HO.LAB 07:57
PROVIDERS: PCP Internal Medicine; Visit Provider Internal Medicine
DX: Z00.00 Encounter for general adult medical examination without abnormal findings (principal); R42 Dizziness and giddiness; Z13.31 Encounter for screening for depression; Z68.29 Body mass index [BMI] 29.0-29.9, adult; Z86.001 Personal history of in-situ neoplasm of cervix uteri
CPT/HCPCS: 36415; 80053; 85025; 87517

== ENCOUNTER 2023-11-27 07:20 | Emergency (ER) | payer OTHER, SELFPAY ==
[2023-11-27 07:31] VITALS: BP 141/72; PULSE 79; RESP 18; TEMP 37.1; O2SAT 98; BMI 29.0
--- NOTE | 2023-11-27 07:54 | ED.BACK ---
HPI - Back Pain/Injury General Chief Complaint: Back Pain/Injury Stated Complaint: back pain Time Seen by Provider: 11/27/23 07:23 Source: patient Mode of arrival: ambulatory Limitations: no limitations History of Present Illness ED Provider: RITIKA TONG Narrative: 42 yo female with no sig PMH not on thinners or IVDA hx of back pain in the past - she went to lift something 2 days ago at home and felt a pain in lower back , no bowel/bladder incontinence, no saddle anesthesia pain worse with movements. Has tried OTC no relief. Has not had work up in past but similar issue about a year ago. 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 MD elicited complaint: back pain and back injury Pertinent past history: prior back pain Onset (ago): day(s) (2) Timing: constant Severity: moderate Similar Symptoms Previously: Yes Quality: spasming and throbbing Location: lumbar spine Radiation: none Exacerbating factors: movement, walking and lifting Relieving factors: immobilization Context: while lifting Associated symptoms: denies other symptoms Treatments prior to arrival: NSAIDS Work related injury: No Related Data Previous Rx's ?Medication ?Instructions ?Recorded cyclobenzaprine 10 mg tablet 10 mg PO TID PRN muscle spasm #20 11/27/23 tabs ibuprofen 600 mg tablet 600 mg PO Q6H PRN pain #30 tabs 11/27/23 lidocaine 5 % topical patch 1 patch topical DAILY #30 ea 11/27/23 prednisone 20 mg tablet 40 mg (2 x 20 mg) PO DAILY 3 days 11/27/23 #6 tabs Allergies Allergy/AdvReac Type Severity Reaction Status Date / Time morphine Allergy Unknown Unknown Verified 11/27/23 07:33 Review of Systems Review of Systems: Constitutional : No Weight loss, No Fever, No Chills, ENT/Mouth : No Hearing loss, No Ear Pain, No Nasal Congestion, No Sinus Pain, No Hoarseness, No sore throat, No Rhinorrhea, No Swallowing Difficulty Cardiovascular : No Chest Pain, No SOB Respiratory : No Cough, No Dyspnea Gastrointestinal : No Nausea, No Vomiting, No Diarrhea, No abdominal Pain, No Hematochezia, No Melena Genitourinary : No Dysuria, No Urinary Frequency, No Hematuria, No Urinary Incontinence, Musculoskeletal : positive back pain Skin : No Skin Lesions, No rash Neuro : No Weakness, No Numbness, No Paresthesias, no loss of bowel or bladder incontinence, no saddle anesthesia all other systems reviewed and are negative PMFSH Past Medical History Attestation statement: The following information was validated with the patient. Source: old records reviewed Medical History LGSIL on Pap smear of cervix No known health problems Surgical History Hx of appendectomy History of right oophorectomy H/O tubal ligation Social History Social History Household Members: Spouse Alcohol intake: never Patient Tobacco Use Status: Never used Tobacco Advance Directives: No Advance Directives Information Provided: No Physical Exam Vital Signs: Vital Signs: Last Vital Signs Temp 98.8 F 11/27/23 07:31 Pulse 79 11/27/23 07:31 Resp 18 11/27/23 07:31 BP 141/72 H 11/27/23 07:31 Pulse Ox 98 11/27/23 07:31 O2 Del Method Room Air 11/27/23 07:31 BMI result Body Mass Index 29.0 Appearance: Alert. Oriented X3. No acute distress. Eyes: Pupils equal, round and reactive to light. ENT: Pharynx normal. Neck: Normal inspection. Neck supple. CVS: Normal heart rate and rhythm. Pulses normal. Respiratory: No respiratory distress. Breath sounds normal. Abdomen: Soft and nontender. Back: ttp along R lower lumbar spine Skin: Skin warm and dry. Normal skin color. Extremities: No lower extremity edema. Neuro: Oriented X 3. No motor deficit. No sensory deficit. L5/5 bilaterally 2+ DTR in patella, 2+ DP pulses bilaterally, SILT inner thigh Medical Decision Making Medical Decision Making MDM Narrative: 42 yo female no IVDA not on thinners here with lower back pain no b/b incontinence no saddle anesthesia pain worse with movements no red flags on exam at this time will need pain control and supportive care - refer to PCP for PT and further workup no concern for fracture, infection, cauda equina. Differential Diagnosis Differential Diagnoses: The differential diagnosis associated with the presentation includes lumbar strain, disc herniation External Record Review External record reviewed: Office record Prescription Management I considered prescription management with: Pain Medication and Other Discharge Plan Discharge Clinical Impression: Strain of lumbar region, Lumbar radiculopathy Patient Disposition: Home, Self-Care Instructions: Acute Low Back Pain (ED), Lumbar Radiculopathy (ED) Additional Instructions: return for worsening pain, loss of control of bowel or bladder or any other concerns ice or heat whatever helps the pain no lifting more than 10lbs for 3 weeks follow up with your doctor as discussed Prescriptions: New cyclobenzaprine 10 mg tablet 10 mg PO TID PRN (Reason: muscle spasm) Qty: 20 0RF lidocaine 5 % adhesive patch,medicated 1 patch topical DAILY Qty: 30 0RF Rx Instructions: leave on most painful area for up to 12 hrs ibuprofen 600 mg tablet 600 mg PO Q6H PRN (Reason: pain) Qty: 30 0RF prednisone 20 mg tablet 40 mg PO DAILY 3 Days Qty: 6 0RF Stand Alone Forms: Work/School Release Print Language: Spanish
[2023-11-27 08:25] VITALS: BP 141/72; PULSE 79; RESP 18; TEMP 37.1; O2SAT 98
== END 2023-11-27 08:27 | disposition home or self-care (01) ==
PROVIDERS: Emergency Provider Emergency Medicine; PCP Internal Medicine
DX: S39.012A Strain of muscle, fascia and tendon of lower back, initial encounter (principal); X50.0XXA Overexertion from strenuous movement or load, initial encounter; M54.16 Radiculopathy, lumbar region; Y93.9 Activity, unspecified; Y92.9 Unspecified place or not applicable; Y99.9 Unspecified external cause status
CPT/HCPCS: 99282; 99283

== ENCOUNTER 2024-07-16 06:14 | Emergency (ER) | payer OTHER, SELFPAY ==
[2024-07-16 06:19] VITALS: BP 127/74; PULSE 94; RESP 18; TEMP 36.2; O2SAT 96; BMI 31.8
--- NOTE | 2024-07-16 06:50 | ED_ITS ---
HPI - General Adult General Chief complaint: General Medical Stated complaint: gen med Time Seen by Provider: 07/16/24 06:47 Source: patient, RN notes reviewed and old records reviewed Mode of arrival: ambulatory Limitations: no limitations History of Present Illness ED Provider: Cruz TONG narrative: Patient is a 43-year-old female presenting to the emergency department with complaint of itching and pinprick sensation to anterior neck for the past 4-5 days. Also reports noticing painless red spots to her tongue. Denies sore throat, cough, fever or other systemic symptoms. Took Benadryl with little relief. MD complaint: itching Onset (ago): day(s) Location: neck Related Data Previous Rx's ?Medication ?Instructions ?Recorded cyclobenzaprine 10 mg tablet 10 mg PO TID PRN muscle spasm #20 11/27/23 tabs ibuprofen 600 mg tablet 600 mg PO Q6H PRN pain #30 tabs 11/27/23 lidocaine 5 % topical patch 1 patch topical DAILY #30 ea 11/27/23 prednisone 20 mg tablet 40 mg (2 x 20 mg) PO DAILY 3 days 11/27/23 #6 tabs famotidine 20 mg tablet 20 mg PO DAILY #14 tabs 07/16/24 Allergies Allergy/AdvReac Type Severity Reaction Status Date / Time morphine Allergy Unknown Unknown Verified 07/16/24 06:20 Review of Systems Review of Systems: As per HPI Yes all other systems are reviewed and are negative Constitutional: Constitutional: Reports as per HPI PMFSH Past Medical History Medical History LGSIL on Pap smear of cervix No known health problems Surgical History Hx of appendectomy History of right oophorectomy H/O tubal ligation Social History Social History Household Members: Spouse Alcohol intake: never Patient Tobacco Use Status: Never used Tobacco Smoked in Last 30 Days: No Use of substances other than those prescribed or required for medical reasons: No Any prior treatment program specific to substance use: No Advance Directives: No Advance Directives Information Provided: Yes Do you have a plan to hurt others: No Plan Patient : No Physical Exam ED Vital Signs: Vital Signs - 24 hr 07/16/24 06:19 Temperature 97.2 F Pulse Rate 94 Respiratory Rate 18 Blood Pressure 127/74 Pulse Oximetry 96 Oxygen Delivery Method Room Air BMI result Body Mass Index 31.8 Vital signs have been reviewed and appear to be correct. Blood pressure normal. Heart rate normal. Respiratory rate normal. Temperature normal. Oxygen saturation normal. Const General: cooperative, healthy appearing and no acute distress Orientation/consciousness: oriented to person, oriented to place, oriented to time and patient oriented x3 Limitations: no limitations HENMT Head: Yes normocephalic and Yes atraumatic Ears: external ears normal General nose exam: Normal external nose present Face and sinus: Yes face symmetric Mouth: Normal oral and palatal mucosa present, lip normal, tongue normal, oropharynx normal, moist mucous membranes, no audible dysphonia, no drooling and no trismus Throat: Yes posterior oropharynx normal, Yes tonsils normal and Yes uvula midline Eyes Pupils: Equal, round and reactive pupils present Neck Neck: Yes normal visual inspection, Yes full ROM, Yes no lymphadenopathy, Yes trachea midline and Yes supple Resp Effort & Inspection: normal respiratory effort and able to speak in complete sentences Auscultation: clear to auscultation bilaterally Cardio Rate: regular rate Rhythm: regular rhythm Heart sounds: S1 normal heart sound present and S2 normal heart sound present GI Palpation (GI): Soft to palpation and nontender Auscultation: normoactive bowel sounds General: Yes no CVA tenderness Back/Spine/Pelvis Back: no CVA tenderness Skin General skin exam: elasticity normal and turgor normal Neuro General: oriented to person, oriented to place, oriented to time, patient oriented x3, moves all extremities, no focal motor deficits and CN's II-XI intact bilaterally Cranial nerves: Yes Equal, round and reactive pupils present Cognition (Neuro): normal cognition Extrem General: Yes full ROM, Yes no pedal edema and Yes no calf tenderness Psych Mental Status: mental status grossly normal Affect: normal affect Thought process: Normal thought process present Medical Decision Making Medical Decision Making MDM Narrative: Patient is a 43-year-old female presenting to the emergency department with complaint of itching and pinprick sensation to anterior neck for the past 4-5 days. On exam patient is awake, A+Ox3, VS WNL, afebrile, normal neurological exam without focal deficits, physical exam findings as above. Given reported symptoms and physical exam findings, initial differential includes but is not limited to seasonal allergies, thrush. 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 Advised patient to switch from Benadryl to Zyrtec, will add famotidine. Also recommended nasal saline spray. Return precautions discussed. Patient verb alized understanding of and agreement with plan. Differential Diagnosis Differential Diagnoses: The differential diagnosis associated with the presentation includes as per [facility] External Record Review External record reviewed: Inpatient record, Office record and Outpatient record Prescription Management I considered prescription management with: Other Discharge Plan Discharge Clinical Impression: Seasonal allergic reaction Patient Disposition: Home, Self-Care Instructions: Allergies (ED) Additional Instructions: You were evaluated in the emergency department today for abnormal sensation to your neck. Your symptoms are likely due to seasonal allergies. We recommend that you use over the counter Zyrtec (cetirizine) 10mg daily. If necessary, you can take the Zyrtec twice daily. You are being prescribed famotidine which is also a histamine daquan, take this as prescribed. You can also use over the counter nasal saline spray several times daily. Follow up with your primary care provider as needed. Return to the emergency department if you develop insert breath or difficulty breathing, difficulty swallowing, fever, or any other new or concerning symptoms. Prescriptions: New famotidine 20 mg tablet 20 mg PO DAILY Qty: 14 0RF No Action cyclobenzaprine 10 mg tablet 10 mg PO TID PRN (Reason: muscle spasm) Qty: 20 0RF lidocaine 5 % adhesive patch,medicated 1 patch topical DAILY Qty: 30 0RF Rx Instructions: leave on most painful area for up to 12 hrs ibuprofen 600 mg tablet 600 mg PO Q6H PRN (Reason: pain) Qty: 30 0RF prednisone 20 mg tablet 40 mg PO DAILY 3 Days Qty: 6 0RF Print Language: Rwandan
--- NOTE | 2024-07-16 07:23 | PC.NURSE ---
patient a&ox3, speaking in full sentences, c/o itchiness/stinging on neck area, no difficulty swallowing, pt felt her tongue was discolored which was not noted by this nurse. pt took benadryl at home without relief.
[2024-07-16 08:03] VITALS: BP 122/72; PULSE 88; RESP 16; TEMP 36.7; O2SAT 96
[2024-07-16 08:04] VITALS: BP 122/72; PULSE 88; RESP 16; TEMP 36.7; O2SAT 96
== END 2024-07-16 08:04 | disposition home or self-care (01) ==
PROVIDERS: Emergency Provider Emergency Medicine; PCP Internal Medicine
DX: J30.2 Other seasonal allergic rhinitis (principal); L29.9 Pruritus, unspecified
CPT/HCPCS: 99283; 99284

== ENCOUNTER 2024-08-10 08:55 | Outpatient (REF) | payer OTHER, SELFPAY | END 2024-08-10 08:56 | disposition home or self-care (01) | LOC: HO.MAMMO 08:55 | PROVIDERS: PCP Internal Medicine; Visit Provider Internal Medicine | DX: Z12.31 Encounter for screening mammogram for malignant neoplasm of breast (principal) | CPT/HCPCS: 77063; 77067 ==

== ENCOUNTER → 2024-08-10 09:00 | Outpatient (BNV) | payer OTHER, SELFPAY | PROVIDERS: PCP Internal Medicine; Visit Provider Internal Medicine | DX: Z12.31 Encounter for screening mammogram for malignant neoplasm of breast (principal) | CPT/HCPCS: 77063; 77067 ==

== ENCOUNTER 2024-08-25 06:34 | Outpatient (REF) | payer OTHER, SELFPAY ==
[2024-08-25 06:48] LABS: MANUAL DIFF FLAG NO
[2024-08-25 07:16] LABS: Basophils Percent Auto 0.3 % (0-2); Eosinophils Absolute Auto 0.1 X10*3/uL (0.0-0.4); Hemoglobin 13.1 g/dl (12.0-16.0); Imm Gran Abs Auto 0.01 X10*3/uL (0.00-0.03); Imm Gran Pct Auto 0.2 % (0.0-0.4); Lymphocytes Absolute Auto 1.9 X10*3/uL (1.2-4.9); Lymphocytes Percent Auto 32.1 % (20-40); Mean Corpuscular HGB Conc 35.4 g/dl (31.0-35.0); Mean Corpuscular Hemoglobin 30.7 pg (27.0-33.0); Mean Corpuscular Volume 86.7 fL (80.0-98.0); Mean Platelet Volume 9.6 fL (9.4-12.3); Monocytes Absolute Auto 0.5 X10*3/uL (0.1-1.2); Monocytes Percent Auto 8.7 % (2-11); Neutrophils Absolute Auto 3.4 x10*3/uL (2.0-8.3); Neutrophils Percent Auto 56.7 % (45-73); Platelet Count 242 X10*3/uL (160-400); Red Blood Count 4.27 X10*6/uL (4.20-5.50); Red Cell Distribution Width 12.4 % (11.0-16.0)
[2024-08-25 07:35] LABS: Creatinine Urine 135.63 mg/dL; Protein/Creatinine Ratio, Ur 0.15 (<0.2); Total Protein Urine Random 21 mg/dL (<12)
[2024-08-25 07:54] LABS: Alanine Aminotransferase < 6 U/L (0-31); Albumin Level 3.6 g/dL (3.5-5.0); Anion Gap 12 (12-20); Aspartate Amino Transferase 21 U/L (5-31); Bilirubin Total 0.3 mg/dL (0.0-1.0); Blood Urea Nitrogen 9 mg/dL (9-16); Calcium 8.3 mg/dL (8.4-10.2); Carbon Dioxide 25 mmol/L (22-29); Chloride 107 mmol/L (96-108); Cholesterol 176 mg/dL (<200); Estimated Glomerular Filt Rate > 60; Glucose Random 111 mg/dL (60-115); HDL Cholesterol 39 mg/dL (>40); LDL Cholesterol Calculated 115 mg/dL (<100); Potassium 3.9 mmol/L (3.3-5.1); Sodium 140 mmol/L (135-145); Total Protein 6.6 g/dL (6.5-8.0); Triglycerides 114 mg/dL (<150)
[2024-08-25 08:01] LABS: Erythrocyte Sedimentation Rate 14 MM/HR (0-20)
[2024-08-25 08:09] LABS: Thyroid Stimulating Hormone 0.88 uIU/mL (0.32-4.0)
[2024-08-25 08:11] LABS: Folate 11.3 ng/mL (> or = 4.0); Vitamin B12 577 pg/mL (200-900)
[2024-08-25 13:06] LABS: Alkaline Phosphatase 82 U/L (39-117)
== END 2024-08-25 06:35 | disposition home or self-care (01) ==
LOC: HO.LAB 06:34
PROVIDERS: PCP Internal Medicine; Visit Provider Internal Medicine
DX: E78.00 Pure hypercholesterolemia, unspecified (principal); M25.579 Pain in unspecified ankle and joints of unspecified foot; R53.83 Other fatigue; R60.0 Localized edema
CPT/HCPCS: 36415; 80053; 80061; 82570; 82607; 82746; 84156; 84443; 85025; 85652

== ENCOUNTER 2024-11-03 07:11 | Outpatient (REF) | payer OTHER, SELFPAY ==
[2024-11-03 13:51] LABS: Bacterial Vaginosis PCR NEGATIVE (Negative); Candida Group PCR NOT DETECTED (Not Detect); Candida glab krusei PCR NOT DETECTED (Not Detect); Trichomonas vaginalis PCR NOT DETECTED (Not Detect)
[2024-11-03 14:21] LABS: CT PCR NOT DETECTED (Not Detect.); NG PCR NOT DETECTED (Not Detect.)
== END 2024-11-03 07:12 | disposition home or self-care (01) ==
LOC: HO.LNP 07:11
PROVIDERS: PCP Internal Medicine; Visit Provider Obstetrics & Gynecology
DX: N76.0 Acute vaginitis (principal); Z11.3 Encounter for screening for infections with a predominantly sexual mode of transmission; Z11.8 Encounter for screening for other infectious and parasitic diseases; Z98.51 Tubal ligation status
CPT/HCPCS: 81515; 87491; 87591; 99212

== ENCOUNTER 2024-11-03 07:11 | Outpatient (AMB) | payer OTHER, SELFPAY ==
--- OUTSIDE RECORDS SUMMARY | 2024-11-03 07:13 | XMS_ITS | Clinical Summary ---
Author Organization [facility] Address [address] [place] [id number] Phone Care Team Providers Care Manufacturing Area Manager Name Role Phone Yumiko Sena MD Primary Care Provider Allergies No known active allergies Medications OSELTAMIVIR PHOSPHATE (TAMIFLU ORAL) Active ondansetron (ZOFRAN-ODT) 4 MG disintegrating tablet Take 1 tablet (4 mg total) by mouth every 8 (eight) hours as needed for nausea. 10 tablet 8 Active Social History Tobacco Use Types Packs/Day Years Used Date Smoking Tobacco: Never Smokeless Tobacco: Never Alcohol Use Standard Drinks/Week Comments No 0 (1 standard drink = 0.6 oz pur e alcohol) Education Answer Date Recorded Are you interested in more education? Not on teto e 07/19/2022 Are you concerned about learning? Not on file 07/19/2022 No 07/19/2022 No 07/19/2022 Digital Access Answer Date Recorded No 08/17/2022 No 08/17/2022 No 08/17/2022 Reliable internet access at home? Not on file 08/17/2022 Device with a working camera? Not on file Comments Unknown Sex and Gender Information Value Date Recorded Sex Assigned at Female 04/29/2017 6:25 PM EST Legal Sex Female 4:20 PM EST Gender Identity Female 04/29/2017 6:25 PM EST Sexual Orientation Straight 04/29/2017 6: 25 PM EST Last Filed Vital Signs Vital Sign Reading Time Taken Comments Blood Pressure 97/56 04/29/2017 11:45 PM EST Pulse 96 04/29/2017 10:05 PM EST Temperature 37.6 C (99.7 F) 04/29/2017 10:05 PM EST Respiratory Rate 18 04/29/2017 10:05 PM EST Oxygen Saturation 96% 04/29/2017 11:45 PM EST Inhaled Oxygen Concentration - - Weight 62.6 kg (138 lb) 04/29/2017 6:23 PM EST Height 152.4 cm (5') 04/29/2017 6:23 PM EST Body Mass Index 26.95 04/29/2017 6:23 PM EST Plan of Treatment Health Maintenance Due Date Last Done Comments Adult Td,Tdap Booster 1981 DEPRESSION SCREENING 1993 HEPATITIS C SCREENING 12/23/1999 HIV ONE-TIME SCREENING (18-6 5 YEARS) 12/23/1999 PAP SMEAR 2002 SMOKING STATUS SCREENING (On ce After 26 Yrs) 12/23/2007 MAMMOGRAM 2021 COVID-19 VACCINE ( - 2023-2 5 season) 2023 07/12/2020, 06/19/2020 HEPATITIS A VACCINES Aged Out No long er eligible based on patient's age to complete this topic HIB VACCINES Aged Out No longer eligi ble based on patient's age to complete this topic MENINGOCOCCAL VACCINES (ACWY) Aged Out No longer eligible based on patient's age to complete this topic MENINGOCOCCAL VACCINES (B) Aged Out N o longer eligible based on patient's age to complete this topic PNEUMOCOCCAL VACCINES (0-49 years) Aged Out No longer eligible b ased on patient's age to complete this topic Medical Devices Not on file Insurance [facility] [place] [address] [place] [address] [facility] Care Teams Manufacturing Area Manager Relationship Specialty Start Date End Date Yumiko Sena MD [address] [place] [address] [place] [id number] PCP - General Internal Medicine 04/29/17 Additional Source Comments The information contained in this document represents components of the legal health record. It is not the complete legal health record.[facility]
--- NOTE | 2024-11-03 07:14 | MHC.OFFVIS ---
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 (Margaret HAIR) Accompanied by: Self / Same As Patient Allergies morphine Allergy (Unknown, Verified 11/03/24 07:19) Unknown Is last menstrual period known: Yes Last menstrual period: 10/20/24 HPI Comments Details: Presenting complaining of vulvovaginal itching associated with white discharge, no foul odor and no other associated symptoms PFSH Medical History LGSIL on Pap smear of cervix No known health problems Surgical History Hx of appendectomy History of right oophorectomy H/O tubal ligation Social History Household Members: Spouse Alcohol intake: never Patient Tobacco Use Status: Never used Tobacco Female Reproductive History Menstrual Age of Menarche: 10 Date of last menstrual period: 10/20/24 control method: permanent sterilization Review of Systems Const All systems reviewed & are unremarkable except as noted in HPI and below Physical Exam Vital Signs: Last Vital Signs BP 106/66 11/03/24 07:15 BMI result Body Mass Index 32.4 General: Yes no CVA tenderness External Female Exam: normal external appearance and normal appearance of the urethra Speculum Exam - Vagina: normal appearance of the vagina, normal palpation, no lesions and no masses Speculum Exam - Cervix: normal appearance of the cervix, normal palpation, no lesions, no masses and nontender Bimanual exam- vagina & uterus: normal bimanual exam, normal palpation, uterine size normal, normal palpation, uterine shape normal, No Cervical tenderness present and non-tender Bimanual Exam- Adnexa, other: normal adnexae Back/Spine/Pelvis Back: no CVA tenderness Assessment & Plan Assessment & Plan (1) Vulvovaginitis: Code(s): N76.0 - Acute vaginitis Category: Medical Plan: GC/CT, Bacterial Vaginosis panel taken, Terazol 0.8% q.h.s. for 3 days with Lotrisone cream b.i.d. for 5 days was sent to the patient's pharmacy. The patient was instructed to call if symptoms don't improve in 48 hours. Medications: New terconazole 0.8% 1 appful vaginal BEDTIME 20 grams 0RF 3 days clotrimazole-betamethasone 1-0.05 % 1 appl topical BID 45 grams 0RF 5 days Coding Level of Care Code Est Pt Level 3 (62430) Diagnoses Vulvovaginitis N76.0
[2024-11-03 07:15] VITALS: BP 106/66; BMI 32.4
== END 2024-11-03 07:35 | disposition home or self-care (01) ==
LOC: HO.HWS 07:11
PROVIDERS: PCP Internal Medicine; Visit Provider Obstetrics & Gynecology
DX: N76.0 Acute vaginitis (principal)
CPT/HCPCS: 99213